=== PATIENT | male | born 1960 | race African-American/Black ===

== ENCOUNTER 2019-05-14 16:50 | Emergency (ER) | payer MEDICARE, SELFPAY ==
--- NOTE | ~2019-05-14 | XR_ITS ---
XR chest 2V 05/14/2019 17:23 Indication: Cough. History of pneumonia. Procedure: 2 view chest Comparison: Comparison to multiple prior studies sequentially, with oldest reviewed study dated 01/08. Findings: Cardiomegaly. No focal air space disease, pulmonary edema, pleural effusion or suspected pn eumothorax. Single-lead pacemaker/ICD device tip projecting over the right ventricle. There are spina l stimulator leads. Impression: 1: No acute cardiopulmonary disease. Reviewed, dictated and finalized at location A. OR INVESTMENT MANAGER Impression: 1: No acute cardiopulmonary disease.
[2019-05-14 17:04] VITALS: BP 127/92; PULSE 76; RESP 20; TEMP 37.1; O2SAT 100
--- NOTE | 2019-05-14 17:49 | ED.URI ---
HPI - URI/Sore Throat General Chief Complaint: Upper Respiratory Infection Stated Complaint: Cold symptoms/Chest Congestion Time Seen by Provider: 05/14/19 17:49 Source: patient, family and RN notes reviewed Mode of arrival: ambulatory Limitations: no limitations History of Present Illness HPI Narrative: 58 year old male accompanied by presents to express care with complaints of nasal congestion and drainage for one week,sharp left side chest discomfort with coughing which is nonproductive for the past 5 days. Patient states that he has had pneumonia in the past several times with last episode one year ago and wants to get checked out. Patient has noted scattered wheezing on auscultation with decrease breath sounds to left lower lobe and upper lobes on ascultation. Patient denies any acute fevers presently, no chills or sweats, denies any acute dyspnea at rest or with exertion, does have history of cardiomyopathy with ICD and pacemaker. MD elicited complaint: cough, rhinorrhea and nasal congestion Pertinent past history: pneumonia, sinusitis and other (cardiomyopathy) Onset (ago): week(s) (1) Consistency: progressively worsening Severity: moderate Pain scale (0-10): 6 Description of mucous: clear Able to tolerate fluids by mouth: Yes Exacerbating factors: exertion, deep breaths and other (coughing) Relieving factors: nothing Associated symptoms: rhinorrhea, nasal congestion, cough and chest pain (left sided with cough) Treatments prior to arrival: acetaminophen Related Data Home Medications Medication Instructions Recorded Confirmed aspirin 325 mg PO DAILY 05/14/19 05/14/19 carvedilol 12.5 mg PO BID 05/14/19 05/14/19 sotalol 80 mg PO BID 05/14/19 05/14/19 Allergies Allergy/AdvReac Type Severity Reaction Status Date / Time No Known Allergies Allergy Unverified 03/31/17 11:25 Review of Systems Review of Systems: Narrative: CONSTITUTIONAL: feverish earlier in week none now, no chills, or sweats. EYES: Denies visual changes, redness, or discharge. ENT:positive rhinorrhea, congestion,no sore throat, or otalgia. CARDIOVASCULAR: Positive chest pain left lower chest with cough,no palpitations, or edema. RESPIRATORY: positive cough denies dyspnea. GASTROINTESTINAL: Denies abdominal pain, nausea, vomiting, or diarrhea. GENITOURINARY: Denies dysuria or hematuria. SKIN: Denies rash or itching. MUSCULOSKELETAL: Denies back pain, joint pain, or myalgia. NEUROLOGIC: Denies headache, numbness, or weakness. PSYCHIATRIC: Denies anxiety or depression. All systems reviewed & are unremarkable except as noted in HPI and below PMFSH Past Medical History Medical History (Updated 05/17/19 @ 13:18 by Melissa Barrett NP) Bronchitis Cardiac defibrillator in place Cardiac pacemaker Cardiomyopathy History of sinus problem Hypertension Pneumonia Spinal cord stimulator status Surgical History Surgical History (Updated 05/17/19 @ 13:11 by Melissa Barrett NP) H/O inguinal hernia repair History of back surgery History of shoulder surgery Family History Family History Other Family history of cardiovascular disease Hypertension Social History Social History (Updated 05/17/19 @ 13:12 by Melissa Barrett NP) Smoking status: Light tobacco smoker Tobacco type: cigars Alcohol intake: current Living arrangements: with family Gender identity (if verbalized by the patient): Male Comments At time of signature, agree with nursing past medical, surgical, social and family history. There is no relevant family history pertinent to the presenting complaint Exam Narrative: Exam Narrative: GENERAL: Well-appearing, well-nourished, and in no acute distress. HEAD: Normocephalic, atraumatic. EYES: PERRLA and EOMI. ENT: Nares red, clear rhinorrhea or epistaxis. Mucous membranes moist.TM's normal with good light reflex, throat pink with no lesions or exudate, no tonsil s
== END 2019-05-14 18:15 | disposition home or self-care (01) ==
PROVIDERS: Emergency Provider Registered Nurse; PCP Internal Medicine
DX: J40 Bronchitis, not specified as acute or chronic (principal); J06.9 Acute upper respiratory infection, unspecified; F17.290 Nicotine dependence, other tobacco product, uncomplicated; Z95.810 Presence of automatic (implantable) cardiac defibrillator; I10 Essential (primary) hypertension; Z96.89 Presence of other specified functional implants
CPT/HCPCS: 71046; 99213; G0463

== ENCOUNTER 2019-06-10 14:24 | Outpatient (CLI) | payer MEDICARE, SELFPAY ==
--- NOTE | ~2019-06-10 | XR_ITS ---
EXAMINATION: XR chest 2V DATE: 06/10/2019 14:44 INDICATION: Cough and fatigue TECHNIQUE: PA and lateral views of the chest are obtained. COMPARISON: 05/14/2019 FINDINGS: The lungs are free of acute opacities. There is no pleural effusion or pneumothorax. There is stable cardiomegaly. There is mild thoracic spondylosis. There is chronic anterior wedging near th e thoracolumbar junction. A single lead pacer remainder of the left chest wall ends with its lead in the right ventricle. Neurostimulator leads end of the central spinal canal at the level of the T6 yared tebral body. There are changes of left total shoulder arthroplasty. IMPRESSION: 1. No acute cardiopulmonary abnormality. 2. Stable cardiomegaly. Reviewed, dictated and finalized at location A. ENT ADMITTING CLERK
== END 2019-06-10 14:25 | disposition home or self-care (01) ==
PROVIDERS: PCP Internal Medicine; Visit Provider Nurse Practitioner
DX: R05 Cough (principal); I51.7 Cardiomegaly
CPT/HCPCS: 71046

== ENCOUNTER 2020-10-12 14:07 | Outpatient (CLI) | payer MEDICARE, SELFPAY ==
--- NOTE | ~2020-10-12 | XR_ITS ---
EXAMINATION: XR chest 2V DATE: 10/12/2020 14:29 INDICATION: Shortness of breath. TECHNIQUE: Frontal and lateral views of the chest were obtained. COMPARISON: Chest 2 views 06/10/2019 FINDINGS: There is no pneumonia, pleural effusion, or pneumothorax. Cardiomegaly is noted. There is a left chest pacer with lead in right ventricle. Epidural electrodes are noted. There is mild chronic anterior wedging of vertebral bodies at thoracolumbar junction. There is a left shoulder arthroplasty . IMPRESSION: 1. Cardiomegaly. Reviewed, dictated and finalized at location A. IMPRESSION: 1. Cardiomegaly.
== END 2020-10-12 14:08 | disposition home or self-care (01) ==
LOC: ANHIMG 14:18
PROVIDERS: PCP Internal Medicine; Visit Provider Internal Medicine
DX: R06.02 Shortness of breath (principal); I51.7 Cardiomegaly
CPT/HCPCS: 71046

== ENCOUNTER 2020-11-07 16:05 | Outpatient (CLI) | payer MEDICARE, SELFPAY ==
--- NOTE | ~2020-11-07 | XR_ITS ---
XR chest 2V 11/07/2020 16:20 Indication: History of cardiomyopathy. Procedure: PA and lateral views of the chest Comparison: Comparison to multiple prior studies sequentially, with oldest reviewed study dated 08/2017. Findings: Cardiomegaly. Pacemaker lead tip in the right ventricle. Spinal stimulator leads overlying the thoracic spine. No focal air space disease, pulmonary edema, pleural effusion or suspected pneumo thorax. There is a left shoulder arthroplasty. 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 Impression: 1: No acute cardiopulmonary disease. 2: Cardiomegaly. Reviewed, dictated and finalized at location A. Impression: 1: No acute cardiopulmonary disease. 2: Cardiomegaly.
== END 2020-11-07 16:06 | disposition home or self-care (01) ==
LOC: ANHIMG 16:07
PROVIDERS: PCP Internal Medicine; Visit Provider Clinical Nurse Specialist
DX: R06.02 Shortness of breath (principal); I51.7 Cardiomegaly
CPT/HCPCS: 71046